=== PATIENT | male | born 1975 | race Two or more races ===

== ENCOUNTER 2021-01-07 15:45 | Emergency (ER) | payer OTHER ==
[~2021-01-07] VITALS: Ht 185.4 cm; Wt 114.0 kg
[2021-01-07] MEDS ORDERED: BACITRACIN 0.9 GM PACKET OINTMENT TP ONE (17:00)
[2021-01-07] MEDS ORDERED: LIDOCAINE 1% 10 ML VIAL SQ ONE (17:00)
[2021-01-07] MEDS ORDERED: PERTUSS(ACELL),DIPH,TET VAC/PF 0.5 ML SYRINGE IM. ONE (17:00)
[2021-01-07] MEDS ORDERED: ONDANSETRON HCL 4 MG/2 ML VIAL IM ONE (17:00)
[2021-01-07] MEDS ORDERED: KETOROLAC TROMETHAMINE 60 MG/2 ML VIAL IM ONE (19:00)
[2021-01-07] MEDS ORDERED: HYDROCODONE/ACETAMINOPHEN 5-325 MG TABLET PO ONE (19:00)
[2021-01-07 20:30] VITALS: BP 148/65
== END 2021-01-07 20:53 | disposition home or self-care (01) ==
LOC: EMS 15:45
DX: S01.01XA Laceration without foreign body of scalp, initial encounter (principal); S50.12XA Contusion of left forearm, initial encounter; S50.11XA Contusion of right forearm, initial encounter; S20.212A Contusion of left front wall of thorax, initial encounter; S70.02XA Contusion of left hip, initial encounter; Y04.0XXA Assault by unarmed brawl or fight, initial encounter; Y93.89 Activity, other specified; Y92.89 Other specified places as the place of occurrence of the external cause; Y99.8 Other external cause status
CPT/HCPCS: 12002; 70450; 70486; 71101; 72170; 73090 ×2; 90471; 90715; 96372; 99284; J1885; J2405; J3490